=== PATIENT | male | born 1995 | race Caucasian/White ===

== ENCOUNTER 2017-03-11 12:30 | Emergency (ER) | payer BC ==
[2017-03-11] MEDS ORDERED: Diphtheria,Pertussis(Acell),Tetanus Vaccine 0.5 ML Syringe IM ONE (12:44)
[2017-03-11] MEDS ORDERED: Lidocaine 1% 20 ML MDV INJECT ONE (12:44)
[2017-03-11 12:46] VITALS: BP 134/68
--- NOTE | 2017-03-11 12:51 | EDM.PDOC ---
[id number]: 03/11/17 12:37 Source of Information: Reports: Patient History Limitations: Reports: No Limitations - History of Present Illness INITIAL COMMENTS - FREE TEXT/NARRATIVE: This patient is a pleasant 21 year old male that presents to the ER. Patient reports hs knife slipped and he cut his left hand with his knife. The patient has a laceration to the left dorsal aspect of the base of the 1st digit, near the web. Patient denies any other injuries. Patient has felxion, extension of the left hand of all digits. Patient report pain with flexion of the left 1st digit. Pulses +2. cap refill < sec, sensory/motor function intact, neurovascular intact. Onset: Today Onset Date: 03/11/17 Onset Time: 12:00 Location: Reports: Upper Extremity, Left Improves with: Reports: None Worsens with: Reports: None Associated Symptoms: Denies: Confusion, Chest Pain, Cough, cough w sputum, Diaphoresis, Fever/Chills, Headaches, Loss of Appetite, Malaise, Nausea/Vomiting , Rash, Seizure, Shortness of Breath, Syncope, Weakness Left Hand Pain Score (Numeric/FACES): 4 - Related Data Allergies Allergy/AdvReac Type Severity Reaction Status Date / Time No Known Allergies Allergy Verified 03/11/17 12:41 Home Meds: Home Meds Ketorolac [Toradol] 1 tab PO Q8H 03/11/17 [History] ED ROS GENERAL - Review of Systems Review Of Systems: See Below Constitutional: Reports: No Symptoms HEENT: Reports: No Symptoms Respiratory: Reports: No Symptoms Cardiovascular: Reports: No Symptoms Endocrine: Reports: No Symptoms GI/Abdominal: Reports: No Symptoms : Reports: No Symptoms Musculoskeletal: Reports: No Symptoms Skin: Reports: Wound (laceration left hand) Neurological: Reports: No Symptoms Psychiatric: Reports: No Symptoms Hematologic/Lymphatic: Reports: No Symptoms Immunologic: Reports: No Symptoms ED EXAM, SKIN/RASH Exam: See Below Exam Limited By: No Limitations General Appearance: Alert, WD/WN, No Apparent Distress Respiratory/Chest: No Respiratory Distress, Lungs Clear Cardiovascular: Normal Peripheral Pulses, Regular Rate, Rhythm Peripheral Pulses: 2+: Radial (L) Extremities: Normal Range of Motion, No Pedal Edema, Normal Capillary Refill Neurological: Alert, Oriented Psychiatric: Normal Affect, Normal Mood Skin: Warm, Dry, Normal Color, No Rash, Wound/Incision Location, Skin: Upper Extremity, Left, Other (left hand dorsal, base of left 1st digit. near the webspace. 2.cm length. ) ED SKIN PROCEDURES - Laceration/Wound Repair Left Posterior Distal Hand Lac/Wound length In cm: 2.5 Appearance: Subcutaneous, Moderately Contaminated Distal NVT: Neuro & Vascular Intact, No Tendon Injury, Other (No tendon is visulaized during exam. Patent after xray has full ROM with flexion and extension without any pain as well. ) Local Anesthesia - Lidocaine (Xylocaine): 1% Plain Local Anesthetic Volume: 3cc Skin Prep: Chlorhexidine (Hibiciens) Saline Irrigation (cc's): 150 Exploration/Debridement/Repair: Wound Explored, In a Bloodless Field, Explored to Base, Moderate Debridement, No Foreign Material Found Suture Size: other (5-0) # of Sutures: 5 Suture Type: Nylon Tetanus Status Addressed: Yes Complications: No Course - Vital Signs Last Recorded V/S: Last Vital Signs Temp 96.8 F 03/11/17 12:37 Pulse 95 03/11/17 12:37 Resp 16 03/11/17 12:37 BP 134/68 03/11/17 12:37 Pulse Ox 100 03/11/17 12:37 - Orders/Labs/Meds Orders: Active Orders 24 hr Category Date Time Status Vaccines to be Administered [RC] PER UNIT ROUTINE Care 03/11/17 12:44 Active Hand Comp Min 3V Lt [CR] Stat Exams 03/11/17 12:44 Taken Meds: Medications Discontinued Medications Generic Name Dose Route Start Last Admin Trade Name Desean PRN Reason Stop Dose Admin Diphtheria/Tetanus/Acell Pertussis 0.5 ml 03/11/17 12:44 03/11/17 13:00 Adacel IM 03/11/17 12:45 0.5 ml .ONCE ONE Administration Lidocaine HCl 20 ml 03/11/17 12:44 03/11/17 13:04 Xylocaine 1% INJECT 03/11/17 12:45 20 ml ONETIME ONE Administration - Radiology Interpretation Free Text/Narrative:: Left hand xray: No fx, no FB. There is soft tissue swelling laceration injury Departure - Departure Time of Disposition: 13:20 Disposition: Home, Self-Care 01 Condition: Good Clinical Impression: Laceration - Discharge Information Instructions: Laceration Care, Adult Referrals: PCP,None [Primary Care Provider] - Forms: ED Department Discharge Additional Instructions: Followup with your primary care provider in 7-10 days for suture removal Return to the ER for worsening of condition or any emergent concerns Wash the area gently with soap and water, rinse, pat dry, keep clean, dry, covered Watch for signs of infection such as redness, fever, vomiting, hot at site, drainage. - My Orders Last 24 Hours: My Active Orders 03/11/17 12:44 Vaccines to be Administered [RC] PER UNIT ROUTINE Hand Comp Min 3V Lt [CR] Stat - Assessment/Plan Last 24 Hours: My Active Orders 03/11/17 12:44 Vaccines to be Administered [RC] PER UNIT ROUTINE Hand Comp Min 3V Lt [CR] Stat Plan: PLEASE SEE RN NOTE FOR PFSH.
== END 2017-03-11 13:30 | disposition home or self-care (01) ==
LOC: CC.ED 12:30
DX: S61.412A Laceration without foreign body of left hand, initial encounter (principal); W26.0XXA Contact with knife, initial encounter
CPT/HCPCS: 12001; 73130-LT; 90471; 90715; 99283

== ENCOUNTER 2025-06-20 20:50 | Emergency (ER) | payer BC ==
[2025-06-20 21:20] LABS: BASOPHILS ABSOLUTE AUTO 0.04 10^3/uL (0.00-0.50); BASOPHILS PERCENT AUTO 0.4 % (0-1); EOSINOPHILS ABSOLUTE AUTO 0.23 10^3/uL (0.00-1.50); EOSINOPHILS PERCENT AUTO 2.5 % (0-6); IMMATURE GRAN ABSOLUTE AUTO 0.02 10^3/uL (0.00-0.49); IMMATURE GRAN PERCENT AUTO 0.2 % (0.0-4.9); LYMPHOCYTES ABSOLUTE AUTO 1.82 10^3/uL (0.60-5.00); LYMPHOCYTES PERCENT AUTO 19.8 % (24-44); MONOCYTES ABSOLUTE AUTO 0.95 10^3/uL (0.00-1.50); MONOCYTES PERCENT AUTO 10.3 % (0-10); NEUTROPHILS ABSOLUTE AUTO 6.15 x10^3/uL (1.80-8.00); NEUTROPHILS PERCENT AUTO 66.8 % (41-71); PLATELET COUNT,PLT 307 10^3/uL (150-400); RED BLOOD CELL COUNT 5.31 x10^6/uL (4.50-6.00); WHITE BLOOD CELL COUNT,WBC 9.2 10^3/uL (4.0-11.0)
[2025-06-20 21:33] VITALS: BP 118/74; PULSE 80
[2025-06-20 21:46] LABS: ALANINE AMINOTRANSFERASE,ALT 74.0 U/L (12-78); ASPARTATE AMNIOTRANSFERASE,AST 24.0 U/L (15-37); BILIRUBIN TOTAL 0.4 mg/dL (0.0-1.0); BLOOD UREA NITROGEN,BUN 15.0 mg/dL (7-18); CARBON DIOXIDE,CO2 26.0 mmol/L (21-32); CHLORIDE,CL 102.0 mEq/L (98-106); CREATININE 1.0 mg/dL (0.7-1.3); EST CRCL DRUG DOSING (CG) 108.01 mL/min; ESTIMATED GFR 104.0 mL/min (>=60); GLUCOSE RANDOM 102.0 mg/dL (75-99); POTASSIUM,K 4.2 mEq/L (3.5-5.0); PROTEIN TOTAL,TP 7.5 g/dL (6.4-8.2); SODIUM,NA 139.0 mEq/L (136-145); TSH ULTRASENSITIVE 1.46 uIU/mL (0.36-5.60)
[2025-06-20] MEDS: Ketorolac 30 MG/ML SDV IM ONE (22:02)
== END 2025-06-20 22:26 | disposition home or self-care (01) ==
LOC: CC.ED 20:50
DX: R07.89 Other chest pain (principal); M54.16 Radiculopathy, lumbar region; I10 Essential (primary) hypertension; Z79.899 Other long term (current) drug therapy
CPT/HCPCS: 36415; 71045; 72100; 80053; 83735; 84443; 84484; 85025; 85379; 93005; 93010; 96372; 99284; 99285; J1885